=== PATIENT | female | born 1990 | race Caucasian/White ===

== ENCOUNTER 2022-09-27 12:03 | Outpatient (CLI) | payer BC, SELFPAY ==
[2022-09-27 15:53] LABS: Chlamydia DNA Amplified* NOT DETECTED (No Detected); GC DNA Amplified* NOT DETECTED (No Detected)
== END 2022-09-27 12:04 | disposition home or self-care (01) ==
LOC: NFLDREF 12:04
PROVIDERS: PCP Family Medicine; Visit Provider Registered Nurse
DX: N93.9 Abnormal uterine and vaginal bleeding, unspecified (principal)
CPT/HCPCS: 87491; 87591

== ENCOUNTER 2022-10-06 14:53 | Outpatient (CLI) | payer BC, SELFPAY ==
--- NOTE | 2022-10-06 15:00 | CRLHL7_ITS ---
For Patients: As a result of the Century Cures Act, medical imaging exams and procedure reports are released immediately into your electronic medical record. You may view this report before your referring provider. If you have questions, please contact your health care provider. INDICATION: IUD check. TECHNIQUE: Transvaginal pelvic ultrasound. FINDINGS: The intrauterine device is not appropriately position. It is in the lower uterine segment potentially bridging the endocervical canal. Visual inspection is warranted. Endometrial stripe of 2 mm. The uterus itself measures 7.0 x 3.4 x 4.7 cm. Normal-sized ovaries containing small follicles. The right ovary measures 3.4 x 1.5 x 2.3 cm and the left ovary measures 2.3 x 1.6 x 1.8 cm. Blood flow was identified in the ovaries. IMPRESSION: Intrauterine device within the lower uterine segment. This is not appropriately positioned. Dictated by Tigre Covarrubias MD @ 10/06/2022 7:35:58 PM (Electronically Signed)
== END 2022-10-06 14:54 | disposition home or self-care (01) ==
LOC: US 14:54
PROVIDERS: PCP Family Medicine; Visit Provider Registered Nurse
DX: Z30.431 Encounter for routine checking of intrauterine contraceptive device (principal); T83.89XA Other specified complication of genitourinary prosthetic devices, implants and grafts, initial encounter
CPT/HCPCS: 76830

== ENCOUNTER 2024-01-08 09:16 | Outpatient (CLI) | payer BC, SELFPAY | END 2024-01-08 09:17 | disposition home or self-care (01) | PROVIDERS: PCP Family Medicine; Visit Provider Obstetrics & Gynecology | DX: O20.9 Hemorrhage in early pregnancy, unspecified (principal); Z67.11 Type A blood, Rh negative | CPT/HCPCS: 84702; 86850; 86900; 86901 ==

== ENCOUNTER 2024-01-09 15:19 | Outpatient (CLI) | payer BC, SELFPAY | END 2024-01-09 15:20 | disposition home or self-care (01) | LOC: NFLDREF 15:20 | PROVIDERS: PCP Family Medicine; Visit Provider Obstetrics & Gynecology | DX: O20.9 Hemorrhage in early pregnancy, unspecified (principal); Z67.11 Type A blood, Rh negative | CPT/HCPCS: J2791 ==

== ENCOUNTER 2024-01-18 12:51 | Outpatient (CLI) | payer BC, SELFPAY ==
--- NOTE | 2024-01-18 13:00 | CRLHL7_ITS ---
For Patients: As a result of the Century Cures Act, medical imaging exams and procedure reports are released immediately into your electronic medical record. You may view this report before your referring provider. If you have questions, please contact your health care provider. HISTORY: Dating and viability COMPARISON: None available of this gestation. TECHNIQUE: Transvaginal ultrasound examination of the early was performed. FINDINGS: A single intrauterine gestational sac is seen with a pole. The crown-rump length measurement of 1.9 cm gives an estimated gestational age of 8 weeks 3 days with an estimated date of delivery of 08/26/2024. This correlates well with the LMP of 11/23/2023 which gives a clinical age of 8 weeks 0 days. Regular cardiac activity is seen at 173 BPM. There is a fluid collection located to the right of the gestational sac measuring 2.0 x 1.4 x 0.3 centimeters, 8 small subchorionic hemorrhage. There is no sign of free fluid in the pelvis. The left ovary contains a hypoechoic region measuring 1.1 centimeters in diameter with increased peripheral color Doppler flow, a corpus luteum cyst of . The right ovary can not be identified. IMPRESSION: 1. Single intrauterine gestation with estimated age of 8 weeks 3 days. 2. Regular cardiac activity is seen. 3. Small subchorionic hemorrhage. Dictated by Guru Villalpando MD @ 01/21/2024 11:20:04 PM (Electronically Signed)
== END 2024-01-18 12:52 | disposition home or self-care (01) ==
LOC: US 12:52
PROVIDERS: PCP Family Medicine; Visit Provider Physician Assistant
DX: Z34.91 Encounter for supervision of normal pregnancy, unspecified, first trimester (principal); O20.9 Hemorrhage in early pregnancy, unspecified; Z3A.08 8 weeks gestation of pregnancy
CPT/HCPCS: 76817; 86703; 86706; 86803; 86850; 86870; 86900; 86901; 87086; 87340; 87491; 87591

== ENCOUNTER 2024-01-18 14:06 | Outpatient (CLI) | payer BC, SELFPAY ==
[2024-01-18 19:09] LABS: Chlamydia DNA Amplified* NOT DETECTED (No Detected); GC DNA Amplified* NOT DETECTED (No Detected)
== END 2024-01-18 14:07 | disposition home or self-care (01) ==
PROVIDERS: PCP Family Medicine; Visit Provider Physician Assistant
DX: Z34.91 Encounter for supervision of normal pregnancy, unspecified, first trimester (principal)
CPT/HCPCS: 86592; 86703; 86704; 86706; 86762; 86787; 86803; 86850; 86870; 86900; 86901; 87086; 87340; 87491; 87591

== ENCOUNTER 2024-04-17 07:08 | Outpatient (CLI) | payer BC, SELFPAY ==
--- NOTE | 2024-04-17 07:15 | CRLHL7_ITS ---
For Patients: As a result of the Century Cures Act, medical imaging exams and procedure reports are released immediately into your electronic medical record. You may view this report before your referring provider. If you have questions, please contact your health care provider. INDICATION: Evaluate anatomy. COMPARISON: 01/18/2024 TECHNIQUE: Real time jeffery scale imaging of the fetus was performed as well as color Doppler analysis of the umbilical vessels. FINDINGS: Sonographic imaging demonstrates a single living intrauterine gestation. Fetus demonstrates a regular cardiac rate of 150 beats per minute. Fetus has a variable position. The placenta lies anteriorly. The edge of the placenta is located 6.8 millimeters from the internal cervical os. Amniotic fluid volume appears normal. Single deepest vertical pocket: 3.0 cm. The cervix is closed and measures 3.6 cm in length. The composite ultrasound gestational age is calculated at 20 weeks 5 days with an estimated sonographic due date of 08/30/2024. The estimated weight is 388 grams which lies at the 49th %. The following biometric measurements were obtained: Biparietal diameter: 4.7 cm/20 weeks 0 days 19th% Head circumference: 17.8 cm/20 weeks 2 days 18th% Abdominal circumference: 15.7 cm/20 weeks 6 days 44th% Femur length: 3.6 cm/21 weeks 2 days 56th% The HC/AC ratio measures: 1.13 range (1.06-1.25) On anatomic survey, there is a normal appearance of the cerebral ventricles, cavum septi pellucidi, cisterna magna and cerebellum. The nose, lips, and facial profile appear normal. The cervical, thoracic and lumbar spine are well visualized and appear normal. There is a normal four-chamber heart view and the left and right ventricular outflow tracts appear normal. The diaphragm and stomach appear normal. The kidneys and bladder also appear normal. There is a normal three-vessel cord and cord insertion site. The four extremities appear normal. IMPRESSION: Concordance of clinical and sonographic dating. No intrinsic abnormalities noted on anatomic survey. Anterior placental edge is located 6.8 millimeters from the internal cervical os. Dictated by Rudy Juares MD @ 04/17/2024 9:03:03 AM (Electronically Signed)
== END 2024-04-17 07:09 | disposition home or self-care (01) ==
LOC: US 07:08
PROVIDERS: PCP Family Medicine; Visit Provider Obstetrics & Gynecology
DX: Z34.92 Encounter for supervision of normal pregnancy, unspecified, second trimester (principal); Z3A.20 20 weeks gestation of pregnancy
CPT/HCPCS: 76805

== ENCOUNTER 2024-05-01 10:07 | Outpatient (CLI) | payer BC, SELFPAY | END 2024-05-01 10:08 | disposition home or self-care (01) | LOC: US 10:08 | PROVIDERS: PCP Family Medicine; Visit Provider Obstetrics & Gynecology | DX: O44.42 Low lying placenta NOS or without hemorrhage, second trimester (principal); Z3A.22 22 weeks gestation of pregnancy | CPT/HCPCS: 76811; 76817 ==

== ENCOUNTER 2024-05-11 22:22 | Outpatient (CLI) | payer BC, SELFPAY ==
[2024-05-11 22:28] VITALS: PULSE 64; O2SAT 100
[2024-05-11 22:33] VITALS: PULSE 72; O2SAT 99
[2024-05-11 22:38] VITALS: PULSE 69; O2SAT 100
[2024-05-11 22:43] VITALS: BP 117/67; PULSE 61; PULSE 73; TEMP 36.7; O2SAT 98
[2024-05-11 22:48] VITALS: PULSE 66; O2SAT 98
--- NOTE | 2024-05-11 23:01 | PM.OBLDTN ---
OB - Triage/Final Diagnosis Visit Information Time Seen by Provider: 23:02 Date Seen: 05/11/24 Narrative: The patient is a 33 year old 3 para 2 at 24w2d GA by LMP consistent with 1st trimester US, who presents with vaginal bleeding. is complicated by placenta previa, with US findings concerning for placenta accreta spectrum, and history of PPH in her last delivery with 3 D&C procedures in the period. She has no pathologic confirmed history of PAS in that . Fátima notes onset of a gush of fluid when standing this evening around 0. She went to the bathroom, where about a half dollar size of her underwear was saturated in dark red blood. She noted trickling of alba blood into the toilet and passage of a clot about the size of a sebastien to quarter, described as bright red. She denies any abdominal pain or contractions, leaking of fluids or decreased movement. She notes no recent intercourse, but she was more active yesterday. Denies abnormal vaginal discharge, itching/burning. No bowel or bladder concerns. She was in her normal state of health prior to onset of bleeding. Evaluation Vital signs: Vital Signs - 24 hr 05/11/24 22:28 05/11/24 22:33 05/11/24 22:38 Temperature Pulse Rate Blood Pressure Pulse Oximetry 100 99 100 05/11/24 22:43 05/11/24 22:43 05/11/24 22:43 Temperature Pulse Rate 61 Blood Pressure 117/67 Pulse Oximetry 98 05/11/24 22:43 05/11/24 22:48 Temperature 98.1 F Pulse Rate Blood Pressure Pulse Oximetry 98 Comments: General: Alert and oriented, in no acute distress Psych: Appropriate mood and affect Abdomen: Gravid. Otherwise soft, non-tender and non-distended FHR: Reassuring for GA. Baseline 135bpm, moderate variability. Intermittent 10x10 accelerations, no decelerations. [place]: No apparent contractions or uterine irritability. Pelvic: External genital exam within normal limits, perineum dry. Speculum inserted, where the vaginal tissue is pink and well rugated. Pooling of dark red blood noted in vaginal vault, evacuated with proctoswab x3 to visualize cervix. Cervix appears multiparous but visually closed, no active bleeding from the os with valsalva/cough. Wet prep and GC/chlamydia swabs obtained and sent. Final Diagnosis (1) Placenta previa with hemorrhage, antepartum: Status: Acute Problem details: Fátima is a 33yo at 24w2d GA seen for vaginal bleeding in the setting of placenta previa with US findings concerning for PAS. Maternal and status was stable on presentation. Labs notable for Hgb of [], coags []. She received betamethasone #1 for lung maturity and was started on magnesium sulfate for neuroprotection. Rhogam was administered in the setting of A negative blood type. Transfer was requested and accepted to [facility]. (2) History of hemorrhage: Status: Acute Problem details: Requiring D&C x3 for retained placenta
[2024-05-11 23:05] LABS: Basophils Absolute Auto 0.03 K/uL (0.00-0.30); Basophils Percent Auto 0.3 % (0.0-3.0); Hematocrit 35.9 % (33.0-51.0); Hemoglobin* 11.8 gm/dL (12.0-16.0); Immature Granulocytes Abs Auto 0.12 K/uL (0.00-0.30); Immature Granulocytes Pct Auto 1.3 %; Lymphocytes Absolute Auto 2.05 K/uL (0.90-2.90); Lymphocytes Percent Auto 21.4 % (20-44); Mean Corpuscular HGB Conc 33 gm/dL (32-36); Mean Corpuscular Hemoglobin 28 pg (26-34); Mean Corpuscular Volume 86 fL (80-100); Monocytes Percent Auto 10.3 % (0.0-11.0); Neutrophils Absolute Auto 6.28 K/uL (1.7-7.0); Neutrophils Percent Auto 65.7 % (42.0-72.0); Platelet Count* 214 K/uL (140-440); RDW Coefficient of Variation % 13.5 % (11.5-15.5); Red Blood Count 4.19 m/uL (4.00-5.20); White Blood Count* 9.56 K/uL (4.50-11.00)
[2024-05-11 23:35] LABS: INR 0.99 (0.91-1.10); Prothrombin Time 13.7 Seconds
[2024-05-11 23:36] LABS: Partial Thromboplastin Time* 29 Seconds (23-33)
[2024-05-11] MEDS: BETAMETHASONE SOD PHOS/ACETATE 6 MG/ML ML 12 MG IM (23:36)
[2024-05-11 23:37] LABS: Slide Review Reflex No
[2024-05-11 23:39] LABS: Trichomonas No Trichomonas Seen (None Seen); Yeast No Yeast Seen (None Seen)
[2024-05-11 23:40] LABS: Clue Cells No Clue Cells Seen (None Seen)
--- NOTE | 2024-05-11 23:42 | P.LDBA_ITS ---
Subjective History of Present Illness Narrative: The patient is a 33 year old 3 para 2 at 24w2d GA by LMP consistent with 1st trimester US, who presents to Ob triage with vaginal bleeding. is complicated by placenta previa, with US findings concerning for placenta accreta spectrum, and history of PPH in her last delivery with 3 D&C procedures in the period. She has no pathologic confirmed history of PAS in that . Fátima notes onset of a gush of fluid when standing this evening around 0. She went to the bathroom, where about a half dollar size of her underwear was saturated in dark red blood. She noted trickling of alba blood into the toilet and passage of a clot about the size of a sebastien to quarter, described as bright red. She denies any abdominal pain or contractions, leaking of fluids or decreased movement. She notes no recent intercourse, but she was more active yesterday. Denies abnormal vaginal discharge, itching/burning. No bowel or bladder concerns. She was in her normal state of health prior to onset of bleeding. Specific Issues/Plans # history of hemorrhage and retained placenta (D&C X3) 11/12/21:1 PPH 1 hour after delivery. D&C, Bakri balloon placed, transfused 2 units 11/26/21:repeat D&C and Bakri balloon placed 12/08/21: she had her 3rd D&C. # Low lying anterior placenta (6.8 mm from internal cervical os on 04/17/2024) * Level two ultrasound scheduled: 05/01/2024. No anomalies. Placenta previa noted, with possible focal placenta accreta. Recommendation: Recommend a repeat US in 3-4 weeks with MFM in [place] to re-evaluate growth and anatomy and placenta/uteroplacental interface OB - Problem Based A/P Additional Plan (1) Placenta previa with hemorrhage, antepartum: Status: Acute (2) History of hemorrhage: Problem details: Requiring D&C x3 for retained placenta Status: Acute Plan Fátima Magallon is a 33yo at 24w2d GA seen for vaginal bleeding in the setting of placenta previa with US findings concerning for PAS. Maternal and status was stable on presentation. Details of pelvic exam as above, where cervix appears visually closed with no active bleeding appreciated on valsalva. Labs notable for Hgb of 11.8, plt 214, aPTT 29, INR 0.99, fibrinogen 487. She received betamethasone #1 for lung maturity and was started on magnesium sulfate for neuroprotection. Rhogam was administered in the setting of A negative blood type. US locally was deferred in the setting of known previa as likely etiology for bleeding, with no clinical suspicion for abruption at this time. Transfer was requested and accepted to [facility] via ambulance. Transfer was accepted by Dr. Carolina Richter. OB Exam Physical Exam Vital signs: Temp Pulse BP Pulse Ox 98.1 F 61 117/67 98 05/11/24 22:43 05/11/24 22:43 05/11/24 22:43 05/11/24 22:48 Narrative: General: Alert and oriented, in no acute distress Psych: Appropriate mood and affect Abdomen: Gravid. Otherwise soft, non-tender and non-distended FHR: Reassuring for GA. Baseline 135bpm, moderate variability. Intermittent 10x10 accelerations, no decelerations. [place]: No apparent contractions or uterine irritability. Pelvic: External genital exam within normal limits, perineum dry. Speculum inserted, where the vaginal tissue is pink and well rugated. Pooling of dark red blood noted in vaginal vault, evacuated with proctoswab x3 to visualize cervix. Cervix appears multiparous but visually closed, no active bleeding from the os with valsalva/cough. Wet prep and GC/chlamydia swabs obtained and sent.
[2024-05-12 00:01] LABS: Fibrinogen* 487 mg/dL (200-450)
[2024-05-12 00:50] VITALS: BP 113/67; PULSE 71
[2024-05-12 00:51] VITALS: PULSE 71; O2SAT 98
[2024-05-12 01:09] LABS: Chlamydia DNA Amplified* NOT DETECTED (No Detected); GC DNA Amplified* NOT DETECTED (No Detected)
--- NOTE | 2024-05-12 01:59 | PC.OBNST ---
NST Note NST Note Start: 05/11/24 22:28 Freq: ONCE Status: Active Protocol: Document 05/12/24 01:57 MATTY (Rec: 05/12/24 01:59 MATTY [id number]) NST Note 3 Para (# of births) 2 EDC 08/29/24 Gestational Age In Weeks & Days 24 Weeks & 3 Days Patient Presented with Complaint(s) of Vaginal bleeding Other Complaints Pt presents with vaginal bleeding both dark brown and bright red in color. Pt reports about a golf ball size gush of blood down her leg and persistent bleeding. Appropriate for Gestational Age Yes LILIAN Bassett RN Date 05/12/24 Appropriate for Gestational Age Yes LILIAN Solis OBGYN Date 05/12/24 OB NST charge Yes Complete NST Note via Write Note Yes The provider's electronic signature indicates the NST is reactive/appropriate for gestational age. *Note to provider: If an addendum is required, open the patient's chart and click on the note under the Nurse/Allied Health tab.
== END 2024-05-12 01:05 | disposition short-term general hospital (02) ==
LOC: OB OUT 22:22 → OB 22:23
PROVIDERS: PCP Family Medicine; Visit Provider Obstetrics & Gynecology
DX: Z87.59 Personal history of other complications of pregnancy, childbirth and the puerperium (principal); O44.12 Complete placenta previa with hemorrhage, second trimester; Z3A.24 24 weeks gestation of pregnancy
CPT/HCPCS: 36415; 59025; 85025; 85384; 85461; 85610; 85730; 86850; 86900; 86901; 87210; 87491; 87591; G0463; J0702; J2791; J3475

== ENCOUNTER 2024-05-12 01:00 | Outpatient (CLI) | payer BC, SELFPAY | END 2024-05-12 01:01 | disposition home or self-care (01) | LOC: AMB 05-16 22:09 | PROVIDERS: PCP Family Medicine; Visit Provider Family Medicine | DX: O44.10 Complete placenta previa with hemorrhage, unspecified trimester (principal); Z3A.24 24 weeks gestation of pregnancy | CPT/HCPCS: A0425; A0434 ==